=== PATIENT | male | born 1940 | race Caucasian/White ===

== ENCOUNTER 2016-05-24 21:19 | Emergency (ER) | payer MEDICARE, OTHER ==
[2016-05-24 22:01] VITALS: TEMP 97.9; O2SAT 98
[2016-05-24] MEDS ORDERED: LIDOCAINE VIS-MYLANTA 30 ML UD PO ONE (22:15)
[2016-05-24] MEDS ORDERED: ASPIRIN (CHEWABLE) 81 MG TAB PO ONE (22:15)
[2016-05-24] MEDS ORDERED: MORPHINE SULFATE INJ 10 MG/ML VIAL IV ONE (22:48)
[2016-05-24] MEDS ORDERED: ONDANSETRON INJ 4 MG/2 ML VIAL IV ONE (22:49)
--- NOTE | 2016-05-24 23:22 | RAD ---
EXAM DESCRIPTION: Chest,2 Views CLINICAL HISTORY: 75 years Male intermittent chest pain stabbing pain from the waist to the neck. COMPARISON: 10/24/2015. FINDINGS: The cardiomediastinal silhouette appears unremarkable. Changes from previous sternotomy. No consolidating infiltrates or pleural effusions. No pneumothorax. IMPRESSION: No acute abnormality is identified. Electronically signed by: Anirudh Chavarria MD 05/24/2016 11:20 PM CREATIVE ART THERAPIST
[2016-05-24] MEDS ORDERED: SODIUM CHLORIDE 0.9% 10 ML VIAL ONE (23:30)
[2016-05-25] MEDS ORDERED: ACETAMINOPHEN W/COD #3 TAB (ER Disp) PO PRN (01:03)
--- NOTE | 2016-05-25 01:06 | ED.PDOC ---
History of Present Illness - General Chief Complaint: General Stated Complaint: stabbing pain from waist to neck Time Seen by Provider: 05/24/16 22:14 Source: patient, RN notes reviewed, family Additional Information: Pt with vague complaints of intermittent sharp stabbing pains coarsing from "waist to upper back" with certain movements or respirations. Pt's states this started since this am. She tried using biofreeze, massage, and heating pad without any relief. Pt presented to ER for evaluation and management. Pt in no distress at rest, but he would have occasional brief periods of pain with certain movements. Pt with paraspinal muscle spasms noted on exam. No focal neuro deficit. Extensive cardiac history warranted a work-up which was negative for evidence of ACS. Pt was treated with a dose of Morphine which improved his symptoms. - History of Present Illness Timing/Duration: 24 hours Severity: moderate Improving Factors: immobilization Worsening Factors: movement Associated Symptoms: denies symptoms Allergies/Adverse Reactions: Allergies Metoprolol [From Lopressor] Allergy (Verified 10/24/15 18:40) Home Medications: Ambulatory Orders Allopurinol 300 mg PO HS 07/30/13 Atenolol 25 mg PO QAM 07/30/13 Coenzyme Q10 (Ubidecarenone) [Co Q-10] 100 mg PO DAILY 07/30/13 Docusate Sodium [Colace] 100 mg PO HS 07/30/13 Isosorbide Mononitrate [Isosorbide Mononitrate ER] 30 mg PO DAILY 07/30/13 Simvastatin 10 mg PO HS 07/30/13 Fish Oil 1000 mg 1,000 mg PO BID 12/05/13 Glimepiride 2 mg PO DAILY 12/05/13 Pantoprazole Sodium 40 mg PO DAILY 12/05/13 Gabapentin 100 mg PO TID 09/24/15 Metformin HCl 500 mg PO BID 09/24/15 Metoclopramide HCl [Reglan] 5 mg PO AC 09/24/15 Atenolol [Tenormin] 50 mg PO BEDTIME 10/24/15 Folic Wvbs-Jhguujoxfx-Vnrudcyc [Folbic 2.5-25-2 mg] 1 tab PO DAILY 10/24/15 Clopidogrel Bisulfate [Plavix] 75 mg PO DAILY #30 tab 10/25/15 Amlodipine Besylate 5 mg PO DAILY 05/24/16 Losartan Potassium 50 mg PO BEDTIME 05/24/16 Magnesium 400 mg PO BID 05/24/16 Acetamin W/Cod #3 Tab [Tylenol #3 Tab] 1 ea PO Q4-6H PRN #10 tab 05/25/16 Review of Systems - Review of Systems Constitutional: States: no symptoms reported EENTM: States: no symptoms reported Respiratory: States: no symptoms reported Cardiology: States: no symptoms reported Gastrointestinal/Abdominal: States: no symptoms reported Genitourinary: States: no symptoms reported Musculoskeletal: States: see HPI, back pain Skin: States: no symptoms reported Neurological: States: no symptoms reported Endocrine: States: no symptoms reported Hematologic/Lymphatic: States: no symptoms reported Past Medical History (General) - Patient Medical History Hx Seizures: No Hx Stroke: No Hx Dementia: No Hx Asthma: No Hx of COPD: No Hx Cardiac Disorders: Yes Hx Congestive Heart Failure: No Hx Pacemaker: No Hx Hypertension: Yes Hx Thyroid Disease: No Hx Diabetes: No Hx Gastroesophageal Reflux: Yes Hx Renal Disease: No Hx Cancer: No Hx of HIV: No Hx Hepatitis C: No Hx MRSA: No Surgical History: coronary bypass surgery - Vaccination History Hx Tetanus, Diphtheria Vaccination: Yes Hx Influenza Vaccination: Yes Hx Pneumococcal Vaccination: Yes Immunizations Up to Date: Yes - Social History Hx Tobacco Use: Yes Hx Alcohol Use: No Hx Substance Use: No Hx Substance Use Treatment: No Hx Depression: No Hx Physical Abuse: No Hx Emotional Abuse: No - Female History Patient is a Female of Child Bearing Age (10 -59 yrs old): No Patient : No Family Medical History - Family History Father Family History: Unknown Physical Exam - Physical Exam General Appearance: Alert, Comfortable - until he gets a sharp intermittent pain in his back, Well Developed, Well Groomed, Well Hydrated, Well Nourished Eye Exam: bilateral normal Ears, Nose, Throat: hearing grossly normal, normal ENT inspection, normal pharynx Neck: non-tender, full range of motion, supple, normal inspection Respiratory: no respiratory distress, no accessory muscle use Cardiovascular/Chest: regular rate, rhythm, no murmur Gastrointestinal/Abdominal: non tender, soft Back Exam: normal inspection, muscle spasm - paraspinal (L>R) Extremity: normal range of motion, non-tender 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, no motor/sensory deficits, alert, normal mood/affect, oriented x 3 Skin Exam: normal color Lymphatic: no adenopathy Progress - Results/Orders Results/Orders: 05/24/16 22:15 EKG STAT 05/25/16 01:03 Acetamin W/Cod #3 (ER Disp) #6 [Tylenol w/CODEINE #3 (ER Dispense) #6 tablets] 1 ea PO Q4H PRN Laboratory Results - last 24 hr 05/24/16 22:30 WBC 11.4 H RBC 4.43 L Hgb 12.5 L Hct 37.4 L MCV 84.4 MCH 28.2 MCHC 33.5 RDW 13.7 Plt Count 206 MPV 8.0 Absolute Neuts (auto) 6.60 Absolute Lymphs (auto) 2.60 Absolute Monos (auto) 0.90 H Absolute Eos (auto) 1.20 H Absolute Basos (auto) 0.10 Neutrophils % 57.6 Lymphocytes % 22.6 Monocytes % 8.1 Eosinophils % 10.5 H Basophils % 1.2 Sodium 139 Potassium 4.1 Chloride 105 Carbon Dioxide 23 Anion Gap 15.1 BUN 25 H Creatinine 1.10 BUN/Creatinine Ratio 22.7 H Random Glucose 127 H Serum Osmolality 283.5 Calcium 9.6 Total Bilirubin 0.3 AST 51 H ALT 43 Alkaline Phosphatase 81 Creatine Kinase 131 CK-MB (CK-2) 3.1 CK-MB (CK-2) % Not Reportable Troponin I < 0.02 Serum Total Protein 7.6 Albumin 4.3 Globulin 3.3 Albumin/Globulin Ratio 1.3 - EKG/XRAY/CT EKG: Sinus, no ST T wave changes XRAY: chest - no acute abnormalities noted Departure - Departure Clinical Impression: Spasm of back muscles Time of Disposition: 01:15 Disposition: Discharge to Home or Self Care Condition: Fair Departure Forms: ED Discharge - Pt. Copy, Patient Portal Self Enrollment Instructions: DI for Back Spasm Referrals: MIRA FIELDS [Primary Care Provider] - 1-5 Days Prescriptions: Acetamin W/Cod #3 Tab [Tylenol #3 Tab] 1 ea PO Q4-6H PRN #10 tab PRN Reason: Pain -- Moderate To Severe Home Medications: Ambulatory Orders Allopurinol 300 mg PO HS 07/30/13 Atenolol 25 mg PO QAM 07/30/13 Coenzyme Q10 (Ubidecarenone) [Co Q-10] 100 mg PO DAILY 07/30/13 Docusate Sodium [Colace] 100 mg PO HS 07/30/13 Isosorbide Mononitrate [Isosorbide Mononitrate ER] 30 mg PO DAILY 07/30/13 Simvastatin 10 mg PO HS 07/30/13 Fish Oil 1000 mg 1,000 mg PO BID 12/05/13 Glimepiride 2 mg PO DAILY 12/05/13 Pantoprazole Sodium 40 mg PO DAILY 12/05/13 Gabapentin 100 mg PO TID 09/24/15 Metformin HCl 500 mg PO BID 09/24/15 Metoclopramide HCl [Reglan] 5 mg PO AC 09/24/15 Atenolol [Tenormin] 50 mg PO BEDTIME 10/24/15 Folic Rmpq-Prtgprmswk-Zoduxbjo [Folbic 2.5-25-2 mg] 1 tab PO DAILY 10/24/15 Clopidogrel Bisulfate [Plavix] 75 mg PO DAILY #30 tab 10/25/15 Amlodipine Besylate 5 mg PO DAILY 05/24/16 Losartan Potassium 50 mg PO BEDTIME 05/24/16 Magnesium 400 mg PO BID 05/24/16 Acetamin W/Cod #3 Tab [Tylenol #3 Tab] 1 ea PO Q4-6H PRN #10 tab 05/25/16 Additional Instructions: Return to ER if condition worsens. Continue to try heating pad and massage as needed.
[2016-05-25 03:37] VITALS: BP 154/77
== END 2016-05-25 01:06 | disposition home or self-care (01) ==
LOC: ER 21:19
DX: M62.830 Muscle spasm of back (principal); I10 Essential (primary) hypertension; K21.9 Gastro-esophageal reflux disease without esophagitis; Z95.1 Presence of aortocoronary bypass graft; Z88.8 Allergy status to other drugs, medicaments and biological substances; Z79.899 Other long term (current) drug therapy; Z87.891 Personal history of nicotine dependence
CPT/HCPCS: 36415; 71020; 80053; 82550; 82553; 84484; 85025; 93005; J2270; J2405

== ENCOUNTER → 2017-09-15 | Outpatient (CLI) | payer MEDICARE, OTHER ==
--- NOTE | 2017-09-15 10:32 | MRI ---
EXAM DESCRIPTION: Lumbar Spine w/o Contrast : Magnetic Resonance Imaging. CLINICAL HISTORY: LUMBAR STENOSIS COMPARISON: MRI lumbar spine 10/21/2013 noncontrast. TECHNIQUE: Multiplanar, multiple standard sequences, non contrast MRI, lumbar spine. FINDINGS: L5-S1: Normal signal in the disc and disc space preserved. Posterior elements are unremarkable. AP canal diameter 12 mm. Bilateral mild to moderate foraminal narrowing. Stable since the prior study. L4-5: Disc desiccation with disc space preserved. Minimal bulge into the canal and into the bilateral foramina. Bilateral flavum ligament hypertrophy and mild facet arthrosis. AP canal diameter 11 mm. Mild bilateral foraminal narrowing. Stable since the prior study. L3-4: Anterior disc space loss with anterior disc bulge and anterior endplate spurs. Modic type I endplate reactive changes anteriorly and in the inferior L3 endplate. This has progressed since the prior study. Posterior broad-based disc bulge abutting the thecal sac. Mild flavum ligament hypertrophy and facet arthrosis. Left foramen patent and right foramen with mild to moderate narrowing. Mild canal narrowing. Stable since the prior study. L2-3: Anterior disc space loss disc bulging and endplate ridging. Disc desiccation. Posterior tiny disc bulge. Bilateral foramina patent. Posterior elements unremarkable. Canal is patent. Stable since the prior study. L1 to: Normal disc with no bulging. Disc space preserved. Canal and foramina patent. Posterior elements unremarkable. Well-circumscribed bright T1 and T2 signal in the inferior L1 endplate. Stable since the prior study. T12-L1: Normal signal in the disc and disc space preserved. No bulging. Posterior elements unremarkable. Canal and foramina are patent. Conus terminates at L1 mid level. Near-anatomic alignment. Paravertebral soft tissues negative. Bilateral renal cysts.. 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 Stable since the prior study. Otherwise normal marrow signal in the remaining vertebral bodies and the posterior elements. Vertebral bodies are not compressed at any level. IMPRESSION: 1. 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 Stable since the prior study. 2. L4-5 disc desiccation and bulging into the bilateral foramina and canal. Mild to moderate canal narrowing. Stable since the prior study. 3. Anterior spondylosis L3-4 disc bulging and anterior spurs and disc space narrowing. This is progressed since the prior study. Moderate narrowing of the right foramen, stable since the prior study. 4. Remaining findings on this study are stable since the prior study. Electronically signed by: Lobito Guerrero MD 09/15/2017 10:30 AM CDT
== END ==
LOC: MRI 09:00
DX: M48.062 Spinal stenosis, lumbar region with neurogenic claudication (principal); M47.896 Other spondylosis, lumbar region

== ENCOUNTER 2018-03-18 17:47 | Emergency (ER) | payer MEDICARE, OTHER ==
[2018-03-18 18:02] VITALS: TEMP 98.4
[2018-03-18] MEDS ORDERED: ASPIRIN (CHEWABLE) 81 MG TAB PO ONE (18:02)
--- NOTE | 2018-03-18 18:32 | RAD ---
EXAM DESCRIPTION: Chest,1 View CLINICAL HISTORY: chest pain COMPARISON: 05/24/2016 FINDINGS: Sternotomy wires are present. Cardiac surgical device is unchanged in position. Cardiac silhouette is within normal limits. There is no focal parenchymal or pleural disease. Visualized osseous structures are within normal limits. IMPRESSION: No evidence of acute cardiopulmonary disease. 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
--- NOTE | 2018-03-18 18:46 | ED.PDOC ---
History of Present Illness - General Chief Complaint: Chest Pain/[place] Stated Complaint: chest pain Time Seen by Provider: 03/18/18 17:48 Source: patient Exam Limitations: no limitations - History of Present Illness Initial Comments: Patient presents after having an episode of severe chest pain that lasted for several seconds. It made him go down to his knees. 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 He says he has daily chest pain and takes nitroglycerin for it. He says today was different because it hurt worse and almost knocked him down. No other complaints. Is asymptomatic upon presentation. Timing/Duration: 1/2 hour Severity: moderate Improving Factors: nothing Worsening Factors: nothing Associated Symptoms: denies symptoms Allergies/Adverse Reactions: Allergies Metoprolol [From Lopressor] Allergy (Verified 10/24/15 18:40) Home Medications: Ambulatory Orders Allopurinol 300 mg PO HS 07/30/13 Atenolol 25 mg PO BEDTIME 07/30/13 Coenzyme Q10 (Ubidecarenone) [Co Q-10] 100 mg PO DAILY 07/30/13 Docusate Sodium [Colace] 100 mg PO HS 07/30/13 Isosorbide Mononitrate [Isosorbide Mononitrate ER] 30 mg PO DAILY 07/30/13 Simvastatin 10 mg PO HS 07/30/13 Fish Oil 1000 mg 1,000 mg PO BID 12/05/13 Glimepiride 2 mg PO DAILY 12/05/13 Pantoprazole Sodium 40 mg PO DAILY 12/05/13 Gabapentin 100 mg PO .DAILY AND NOON 09/24/15 Metformin HCl 500 mg PO BID 09/24/15 Metoclopramide Tab [Reglan Tab] 5 mg PO AC 09/24/15 Atenolol [Tenormin] 50 mg PO DAILY 10/24/15 Folic Gamt-Hsixjpxqgw-Uoqvnoim [Folbic 2.5-25-2 mg] 1 tab PO DAILY 10/24/15 Clopidogrel Bisulfate [Plavix] 75 mg PO DAILY #30 tab 10/25/15 Amlodipine Besylate 5 mg PO DAILY 05/24/16 Losartan Potassium 50 mg PO BEDTIME 05/24/16 Magnesium 400 mg PO BID 05/24/16 Carbidopa-Levodopa [Carbidopa/Levodopa 25-100 mg] 1 tab PO TID 03/18/18 Gabapentin 200 mg PO BEDTIME 03/18/18 Review of Systems - Review of Systems Constitutional: States: no symptoms reported EENTM: States: no symptoms reported Respiratory: States: no symptoms reported Cardiology: States: see HPI Gastrointestinal/Abdominal: States: no symptoms reported Genitourinary: States: no symptoms reported Musculoskeletal: States: no symptoms reported Skin: States: no symptoms reported Neurological: States: no symptoms reported Endocrine: States: no symptoms reported Hematologic/Lymphatic: States: no symptoms reported Past Medical History (General) - Patient Medical History Hx Seizures: No Hx Stroke: No Hx Dementia: No Hx Asthma: No Hx of COPD: No Hx Cardiac Disorders: Yes Hx Congestive Heart Failure: No Hx Pacemaker: No Hx Hypertension: Yes Hx Thyroid Disease: No Hx Diabetes: No Hx Gastroesophageal Reflux: Yes Hx Renal Disease: No Hx Cancer: No Hx of HIV: No Hx Hepatitis C: No Hx MRSA: No Surgical History: coronary bypass surgery - Vaccination History Hx Tetanus, Diphtheria Vaccination: Yes Hx Influenza Vaccination: Yes Hx Pneumococcal Vaccination: Yes - Social History Hx Tobacco Use: Yes Hx Alcohol Use: No Hx Substance Use: No Hx Substance Use Treatment: No Hx Depression: No Hx Physical Abuse: No Hx Emotional Abuse: No - Female History Patient : No Family Medical History - Family History Father Family History: Unknown Physical Exam - Physical Exam General Appearance: Alert Eye Exam: bilateral normal Ears, Nose, Throat: normal ENT inspection Neck: non-tender, full range of motion, supple Respiratory: chest non-tender, lungs clear, normal breath sounds, no respiratory distress Cardiovascular/Chest: normal peripheral pulses, regular rate, rhythm, no edema Gastrointestinal/Abdominal: normal bowel sounds, non tender, soft Extremity: normal range of motion, non-tender, normal inspection, no pedal edema Neurologic: no motor/sensory deficits, alert, normal mood/affect, oriented x 3 Skin Exam: normal color Lymphatic: no adenopathy Progress - Progress Progress: 03/18/18 21:53 Laboratory Tests 03/18/18 03/18/18 03/18/18 17:55 17:55 17:55 WBC 11.9 H RBC 4.31 L Hgb 12.5 L Hct 36.5 L MCV 84.9 MCH 29.0 MCHC 34.3 RDW 13.9 Plt Count 225 MPV 8.0 Absolute Neuts (auto) 7.40 H Absolute Lymphs (auto) 2.60 Absolute Monos (auto) 0.70 Absolute Eos (auto) 1.00 H Absolute Basos (auto) 0.10 Neutrophils % 62.5 Lymphocytes % 21.9 Monocytes % 5.7 Eosinophils % 8.7 H Basophils % 1.2 PT 9.8 INR 0.98 PTT (SP) 27.0 Sodium 133 L Potassium 4.6 Chloride 100 L Carbon Dioxide 23 Anion Gap 14.6 BUN 22 H Creatinine 1.01 BUN/Creatinine Ratio 21.8 H Random Glucose 204 H Serum Osmolality 275.6 Calcium 9.4 Magnesium Total Bilirubin 0.4 AST 52 H ALT 38 Alkaline Phosphatase 85 Creatine Kinase 76 CK-MB (CK-2) 2.9 CK-MB (CK-2) % Not Reportable Troponin I < 0.02 B-Natriuretic Peptide 50.7 Serum Total Protein 7.5 Albumin 4.2 Globulin 3.3 Albumin/Globulin Ratio 1.3 03/18/18 03/18/18 17:55 21:08 WBC RBC Hgb Hct MCV MCH MCHC RDW Plt Count MPV Absolute Neuts (auto) Absolute Lymphs (auto) Absolute Monos (auto) Absolute Eos (auto) Absolute Basos (auto) Neutrophils % Lymphocytes % Monocytes % Eosinophils % Basophils % PT INR PTT (SP) Sodium Potassium Chloride Carbon Dioxide Anion Gap BUN Creatinine BUN/Creatinine Ratio Random Glucose Serum Osmolality Calcium Magnesium 1.6 L Total Bilirubin AST ALT Alkaline Phosphatase Creatine Kinase CK-MB (CK-2) CK-MB (CK-2) % Troponin I < 0.02 B-Natriuretic Peptide Serum Total Protein Albumin Globulin Albumin/Globulin Ratio Patient was symptom free in the E.D. Troponin x two negative. EKG x two showed 1st degree A-V block with NSR, no ST changes nor T wave inversions. No LBBB. Likely was chronic angina that he has but was just worse for this brief episode. E.R. warnings given. Care instructions given. Questions were elicited and answered. The patient voiced understanding and agreement with the plan. Departure - Departure Clinical Impression: Chronic stable angina Disposition: Discharge to Home or Self Care Condition: Good Departure Forms: ED Discharge - Pt. Copy, Patient Portal Self Enrollment Instructions: DI for Chest Pain Diet: low fat, low cholesterol Activity: increase activity as tolerated Referrals: MIRA FIELDS [Primary Care Provider] - 1-2 Weeks Home Medications: Ambulatory Orders Allopurinol 300 mg PO HS 07/30/13 Atenolol 25 mg PO BEDTIME 07/30/13 Coenzyme Q10 (Ubidecarenone) [Co Q-10] 100 mg PO DAILY 07/30/13 Docusate Sodium [Colace] 100 mg PO HS 07/30/13 Isosorbide Mononitrate [Isosorbide Mononitrate ER] 30 mg PO DAILY 07/30/13 Simvastatin 10 mg PO HS 07/30/13 Fish Oil 1000 mg 1,000 mg PO BID 12/05/13 Glimepiride 2 mg PO DAILY 12/05/13 Pantoprazole Sodium 40 mg PO DAILY 12/05/13 Gabapentin 100 mg PO .DAILY AND NOON 09/24/15 Metformin HCl 500 mg PO BID 09/24/15 Metoclopramide Tab [Reglan Tab] 5 mg PO AC 09/24/15 Atenolol [Tenormin] 50 mg PO DAILY 10/24/15 Folic Klxc-Nuthhvqups-Nsjdxtsq [Folbic 2.5-25-2 mg] 1 tab PO DAILY 10/24/15 Clopidogrel Bisulfate [Plavix] 75 mg PO DAILY #30 tab 10/25/15 Amlodipine Besylate 5 mg PO DAILY 05/24/16 Losartan Potassium 50 mg PO BEDTIME 05/24/16 Magnesium 400 mg PO BID 05/24/16 Carbidopa-Levodopa [Carbidopa/Levodopa 25-100 mg] 1 tab PO TID 03/18/18 Gabapentin 200 mg PO BEDTIME 03/18/18 Additional Instructions: See your regular doctor about control of your angina. Return to the E.R. if symptoms worsen.
[2018-03-18 19:04] VITALS: O2SAT 95
[2018-03-18 22:15] VITALS: BP 176/68
== END 2018-03-18 22:15 | disposition home or self-care (01) ==
LOC: ER 17:47
DX: I20.9 Angina pectoris, unspecified (principal); I25.2 Old myocardial infarction; I10 Essential (primary) hypertension; K21.9 Gastro-esophageal reflux disease without esophagitis; Z87.891 Personal history of nicotine dependence; Z98.61 Coronary angioplasty status; Z79.899 Other long term (current) drug therapy; Z88.8 Allergy status to other drugs, medicaments and biological substances; Z95.1 Presence of aortocoronary bypass graft

== ENCOUNTER 2018-06-17 21:52 | Observation (INO) | payer MEDICARE ==
--- NOTE | 2018-06-17 22:28 | ED.PDOC ---
History of Present Illness - General Chief Complaint: General Stated Complaint: feverish, weakness, not eating Time Seen by Provider: 06/17/18 22:21 Source: patient Exam Limitations: no limitations - History of Present Illness Initial Comments: BRINGS HER STATING THAT HE'S BEEN CONFUSED, HE HAS NOT BEEN EATING OR DRINKING. Severity: moderate Improving Factors: nothing Associated Symptoms: denies symptoms Allergies/Adverse Reactions: Allergies Metoprolol [From Lopressor] Allergy (Verified 10/24/15 18:40) Home Medications: Ambulatory Orders Allopurinol 300 mg PO HS 07/30/13 Docusate Sodium [Colace] 100 mg PO HS 07/30/13 Isosorbide Mononitrate [Isosorbide Mononitrate ER] 30 mg PO DAILY 07/30/13 Simvastatin 10 mg PO HS 07/30/13 Fish Oil 1000 mg 1,000 mg PO BID 12/05/13 Glimepiride 2 mg PO DAILY 12/05/13 Pantoprazole Sodium 40 mg PO DAILY 12/05/13 Gabapentin 100 mg PO .DAILY AND NOON 09/24/15 Metformin HCl 500 mg PO BID 09/24/15 Folic Hdfo-Teldrhbvkt-Vhmykxnr [Folbic 2.5-25-2 mg] 1 tab PO DAILY 10/24/15 Clopidogrel Bisulfate [Plavix] 75 mg PO DAILY #30 tab 10/25/15 Losartan Potassium 50 mg PO BEDTIME 05/24/16 Magnesium 400 mg PO BID 05/24/16 Carbidopa-Levodopa [Carbidopa/Levodopa 25-100 mg] 1 tab PO TID 03/18/18 Gabapentin 200 mg PO BEDTIME 03/18/18 Clopidogrel Bisulfate [Plavix] 75 mg PO 06/17/18 Metoclopramide HCl 5 mg PO 06/17/18 Review of Systems - Review of Systems Constitutional: States: chills, fever EENTM: States: no symptoms reported Respiratory: Denies: cough, short of breath Cardiology: Denies: chest pain, palpitations, syncope Gastrointestinal/Abdominal: Denies: abdominal pain, nausea, vomiting Genitourinary: States: no symptoms reported Musculoskeletal: States: no symptoms reported Skin: States: no symptoms reported Neurological: States: other - CONFUSION Endocrine: States: no symptoms reported Hematologic/Lymphatic: States: no symptoms reported Past Medical History (General) - Patient Medical History Hx Seizures: No Hx Stroke: No Hx Dementia: No Hx Asthma: No Hx of COPD: No Hx Cardiac Disorders: Yes Hx Congestive Heart Failure: No Hx Pacemaker: No Hx Hypertension: Yes Hx Thyroid Disease: No Hx Diabetes: Yes Hx Gastroesophageal Reflux: Yes Hx Renal Disease: No Hx Cancer: No Hx of HIV: No Hx Hepatitis C: No Hx MRSA: No Surgical History: other - Vaccination History Hx Tetanus, Diphtheria Vaccination: Yes Hx Influenza Vaccination: Yes Hx Pneumococcal Vaccination: Yes - Social History Hx Tobacco Use: Yes Hx Alcohol Use: No Hx Substance Use: No Hx Substance Use Treatment: No Hx Depression: No Hx Physical Abuse: No Hx Emotional Abuse: No - Female History Patient : No Family Medical History - Family History Father Family History: Unknown Physical Exam - Physical Exam General Appearance: Alert, No apparent distress Eye Exam: bilateral normal Ears, Nose, Throat: other - MM SLIGHTLY DRY Neck: non-tender, full range of motion, supple, normal inspection Respiratory: lungs clear, normal breath sounds, no respiratory distress Cardiovascular/Chest: regular rate, rhythm, no murmur Gastrointestinal/Abdominal: normal bowel sounds, non tender, soft, no organomegaly Back Exam: normal inspection, no CVA tenderness Extremity: normal range of motion, non-tender Neurologic: no motor/sensory deficits, alert, normal mood/affect, other - DISORIENTED TO TIME BUT STATES THAT HAPPENS FROM TIME TO TIME Skin Exam: normal color, warm/dry Lymphatic: no adenopathy Progress - Progress Progress: 06/18/18 00:07 VSS, SLIGHTLY CONFUSED, D/W MAHIN WILL ADMIT - EKG/XRAY/CT XRAY: chest - SLIGHT PROMINENCE OF R PERIHILAR VASCULATURE Departure - Departure Clinical Impression: Dehydration, Altered sensorium, Diabetes 1.5, managed as type 2 Hypertension Qualifiers: Hypertension type: essential hypertension Qualified Code(s): I10 - Essential (primary) hypertension Time of Disposition: 00:14 Disposition: Admit Patient Condition: Fair Departure Forms: ED Discharge - Pt. Copy, Patient Portal Self Enrollment Referrals: MIRA FIELDS [Primary Care Provider] - 1-2 Weeks Home Medications: Ambulatory Orders Allopurinol 300 mg PO HS 07/30/13 Docusate Sodium [Colace] 100 mg PO HS 07/30/13 Isosorbide Mononitrate [Isosorbide Mononitrate ER] 30 mg PO DAILY 07/30/13 Simvastatin 10 mg PO HS 07/30/13 Fish Oil 1000 mg 1,000 mg PO BID 12/05/13 Glimepiride 2 mg PO DAILY 12/05/13 Pantoprazole Sodium 40 mg PO DAILY 12/05/13 Gabapentin 100 mg PO .DAILY AND NOON 09/24/15 Metformin HCl 500 mg PO BID 09/24/15 Folic Dllh-Sqyejysrik-Jtnlwcct [Folbic 2.5-25-2 mg] 1 tab PO DAILY 10/24/15 Clopidogrel Bisulfate [Plavix] 75 mg PO DAILY #30 tab 10/25/15 Losartan Potassium 50 mg PO BEDTIME 05/24/16 Magnesium 400 mg PO BID 05/24/16 Carbidopa-Levodopa [Carbidopa/Levodopa 25-100 mg] 1 tab PO TID 03/18/18 Gabapentin 200 mg PO BEDTIME 03/18/18 Clopidogrel Bisulfate [Plavix] 75 mg PO 06/17/18 Metoclopramide HCl 5 mg PO 06/17/18 Decision To Admit - Decistion To Admit Decision to Admit Reason: Admit from ER Decision to Admit Date: 06/17/18 Decision to Admit Time: 23:37
[2018-06-17] MEDS ORDERED: SODIUM CHLORIDE 0.9% 500ML 500 ML IVS ONE (23:04)
[2018-06-17] MEDS ORDERED: SODIUM CHLORIDE 0.9% 1000ML 1,000 ML IVS ONE (23:26)
[2018-06-18] MEDS ORDERED: GLUCAGON INJ 1 MG VIAL SUBCU PRN (01:12)
[2018-06-18] MEDS ORDERED: ACETAMINOPHEN 325 MG TAB PO PRN (01:12)
[2018-06-18] MEDS ORDERED: DEXTROSE 50% 25 GM/50 ML SYG IV PRN (01:12)
[2018-06-18] MEDS ORDERED: SODIUM CHLORIDE 0.9% 1000ML 1,000 ML IVS PRN (01:12)
[2018-06-18] MEDS ORDERED: SODIUM CHLORIDE 0.9% (FLUSH) 10 ML SYG IV PRN (01:12)
[2018-06-18] MEDS ORDERED: IV SET AND CAP CHANGE INJ INJ SCH (01:30)
[2018-06-18] MEDS ORDERED: GABAPENTIN 100 MG CAP PO SCH ×2 (02:00→21:00)
[2018-06-18] MEDS ORDERED: MAGNESIUM OXIDE 400 MG TAB ONE (06:59)
[2018-06-18] MEDS: INSULIN LISPRO 100 UNITS/ML PEN SUBCU SCH ×2 (07:25→11:36)
[2018-06-18] MEDS ORDERED: GLIMEPIRIDE 0.5 MG PO SCH (09:00)
[2018-06-18] MEDS ORDERED: NON-FORMULARY MEDICATION 1 EA MIS (Magnesium [Magnesium] 400 MG) PO SCH (09:00)
[2018-06-18] MEDS ORDERED: ISOSORBIDE MONONITRATE (IMDUR) 30 MG TAB PO SCH (09:00)
[2018-06-18] MEDS ORDERED: CARBIDOPA/LEVODOPA 25/100 1 TAB PO SCH (09:00)
[2018-06-18] MEDS ORDERED: METOCLOPRAMIDE HCL 5 MG TAB PO SCH (09:00)
[2018-06-18] MEDS ORDERED: metFORMIN HCL 500 MG TAB PO SCH (09:00)
[2018-06-18] MEDS ORDERED: PANTOPRAZOLE SODIUM TAB 40 MG PO SCH (09:00)
[2018-06-18] MEDS ORDERED: ENOXAPARIN SODIUM 40 MG/0.4 ML SYG SUBCU SCH (09:00)
[2018-06-18 10:01] VITALS: BP 150/71; TEMP 97.4; O2SAT 95
[2018-06-18] MEDS ORDERED: MAGNESIUM SULFATE PREMIX 2GM 2 GM in PREMIX BAG 1 BAG IVPB ONE (10:39)
[2018-06-18] MEDS ORDERED: MAGNESIUM SULFATE PREMIX 2GM 50 ML IVPB ONE (10:44)
--- NOTE | 2018-06-18 11:25 | SSS ---
DATE OF ADMISSION: 06/17/18 DATE OF DISCHARGE: 06/18/18 SUPERVISING PHYSICIAN: Johnathan Bocanegra MD DISCHARGE DIAGNOSIS: 1. Confusion with mild anorexia and decreased intake of p.o. fluids. 2. Dehydration with mild renal insufficiency, normalized. 3. Electrolyte imbalance, mostly hyponatremia of 129 and hypomagnesemia of 1.7. 4. History of hypertension. 5. History of diabetes mellitus on oral therapy. 6. Coronary artery disease. 7. Gout. 8. Gastroesophageal reflux disease. HISTORY OF PRESENT ILLNESS: This is a 77-year-old male patient who presented to the Emergency Room on the date of admission for confusion. He said that on Thursday, he and his went to [place] for one of her doctor's appointments and felt good at that time. They went out to eat at an all you can eat salad bar and when he came home on Thursday evening, he was nauseated. He had some mild diffuse abdominal pain and actually had vomiting x1. He also had mild diarrhea. His said he did not even know her, he had poor fluid intake and was not eating well over the next 24 hours. In the Emergency Room, his initial sodium was 129 with potassium 4.3, chloride 96, carbon dioxide 20, BUN 25, creatinine 1.18. Glucose 198. Initial lactic acid was 2.3. WBCs 14, hemoglobin 12.6, hematocrit 37.1. He did have a left shift on his differential. Urinalysis was basically unremarkable. Influenza A and B per PCR were both negative. His vital signs showed a low grade temperature of 99.1 with pulse 81, blood pressure 132/78, respiratory rate 20, O2 saturation 96% on room air. HOSPITAL COURSE: He was placed in Observation overnight. He was given fluids. His confusion resolved. Lab this morning showed sodium 133, potassium 3.6, chloride 101, carbon dioxide 23, BUN 20, creatinine 0.89, glucose 125, lactic acid 1.6, magnesium 1.7 but he received supplementation this morning. His WBCs normalized to 10,300 with hemoglobin 12.1, hematocrit 35.3. There was no shift on his differential. The patient will be discharged home in stable condition. PAST MEDICAL HISTORY: 1. Diabetes mellitus, type 2, on oral therapy. 2. Coronary artery disease. 3. Myocardial infarction in 2000. 4. Hypertension. 5. Gout. 6. Gastroesophageal reflux disease. 7. History of small bowel obstruction secondary to hernia. 8. Transient ischemic attacks x2. PAST SURGICAL HISTORY: 1. Hernia repair x4. 2. Coronary artery bypass graft in 2007. 3. Coronary artery stents in 2000. 4. Appendectomy. CURRENT MEDICATIONS: 1. Fish oil. 2. Folic acid. 3. Cyanocobalamin. 4. Pyridoxine. 5. Allopurinol. 6. Carbidopa/levodopa. 7. Plavix. 8. Docusate sodium. 9. Gabapentin. 10. Glimepiride. 11. Isosorbide mononitrate. 12. Losartan. 13. Magnesium. 14. Metformin. 15. Reglan. 16. Pantoprazole. 17. Simvastatin. ALLERGIES: METOPROLOL, HIGH DOSE RANEXA. FAMILY HISTORY: Positive for diabetes and cancer. SOCIAL HISTORY: He lives in [place]. He is . He quit smoking when he was 19 years old. He denies any ETOH or illicit drug use. He is a retired welder/installer. REVIEW OF SYSTEMS: Negative except as per history of present illness. PHYSICAL EXAMINATION: VITAL SIGNS: Temperature 97.4. Heart rate 66. Blood pressure 150/71. Respiratory rate 18. O2 saturation 95% on room air. GENERAL: This is a 77-year-old male patient sitting up in his hospital bed. He is in no acute distress. HEENT: Normocephalic, atraumatic. Pupils are equal and reactive. Oropharynx is clear. NECK: Supple without mass. No discernible jugular venous distention. RESPIRATORY: Clear to auscultation bilaterally. CHEST: There is equal rise and fall of the chest with inspiration and expiration. CARDIOVASCULAR: Regular rate and rhythm. GASTROINTESTINAL: Abdomen is soft, nondistended, nontender. Bowel sounds are positive. EXTREMITIES: No cyanosis, clubbing or edema. NEUROLOGIC: Awake, alert and oriented times three. Cranial nerves II-XII are grossly intact. His states his confusion resolved last night and his neurological status is baseline now. LABORATORY: Labs and films are as per history of present illness. DISCHARGE PLAN: The patient will be discharged home in stable condition. He is to resume his previous diet and increase his activity as tolerated. He is to followup with his primary care physician, Dr. Mukesh Zavala. He has an appointment on 06/29/18. He is to resume his previous home medications. He is to return to the hospital for any problems or complications. DISCHARGES MEDICATION: 1. Simvastatin. 2. Colace. 3. Allopurinol. 4. Isosorbide mononitrate. 5. Pantoprazole. 6. Fish oil. 7. Gabapentin. 8. Metformin. 9. Folic acid. 10. Cyanocobalamin. 11. Pyridoxine. 12. Losartan. 13. Magnesium. 14. Gabapentin. 15. Carbidopa/levodopa. 16. Reglan. 17. Glimepiride. 18. Plavix. #[id number]
[2018-06-18] MEDS ORDERED: CLOPIDOGREL 75 MG TAB PO SCH (17:00)
[2018-06-18] MEDS ORDERED: MAGNESIUM OXIDE 400 MG TAB PO SCH (21:00)
[2018-06-18] MEDS ORDERED: DOCUSATE SODIUM 100 MG CAP PO SCH (21:00)
[2018-06-18] MEDS ORDERED: SIMVASTATIN 20 MG TAB PO SCH (21:00)
[2018-06-18] MEDS ORDERED: LOSARTAN POTASSIUM 25 MG TAB PO SCH (21:00)
[2018-06-18] MEDS ORDERED: ALLOPURINOL 300 MG TAB PO SCH (21:00)
== END 2018-06-18 12:10 | disposition home or self-care (01) ==
LOC: ER 21:52 → MS 06-18 00:25
PROVIDERS: ADMIT Nurse Practitioner Family; ATTEND Nurse Practitioner Acute Care
DX: E86.0 Dehydration (principal); R41.0 Disorientation, unspecified; R63.0 Anorexia; N28.9 Disorder of kidney and ureter, unspecified; E83.42 Hypomagnesemia; E87.1 Hypo-osmolality and hyponatremia; E87.8 Other disorders of electrolyte and fluid balance, not elsewhere classified; I10 Essential (primary) hypertension; E11.9 Type 2 diabetes mellitus without complications; I25.10 Atherosclerotic heart disease of native coronary artery without angina pectoris; M10.9 Gout, unspecified; K21.9 Gastro-esophageal reflux disease without esophagitis; I25.2 Old myocardial infarction; Z68.27 Body mass index [BMI] 27.0-27.9, adult; Z79.84 Long term (current) use of oral hypoglycemic drugs; Z79.02 Long term (current) use of antithrombotics/antiplatelets; Z79.899 Other long term (current) drug therapy; Z88.8 Allergy status to other drugs, medicaments and biological substances; Z86.73 Personal history of transient ischemic attack (TIA), and cerebral infarction without residual deficits; Z95.1 Presence of aortocoronary bypass graft; Z95.5 Presence of coronary angioplasty implant and graft; Z87.891 Personal history of nicotine dependence; Z90.49 Acquired absence of other specified parts of digestive tract
CPT/HCPCS: 96361; 96365; 96372; J7040; J7030 ×2; J1650; J3475; 80048; 80053; 82948 ×2; 36415 ×3; 81001; 85025 ×2; 83735; 36416 ×2; 83605 ×2; 71045; 94760 ×2; 99285; G0378; 87502

== ENCOUNTER 2018-11-14 11:00 | Emergency (ER) | payer MEDICARE, OTHER ==
[2018-11-14 13:44] VITALS: BP 152/69; O2SAT 96
[2018-11-14 15:56] VITALS: TEMP 97.8
== END 2018-11-14 14:00 | disposition short-term general hospital (02) ==
LOC: ER 11:00
DX: I20.0 Unstable angina (principal); I44.0 Atrioventricular block, first degree; I25.2 Old myocardial infarction; E78.5 Hyperlipidemia, unspecified; I10 Essential (primary) hypertension; E11.9 Type 2 diabetes mellitus without complications; K21.9 Gastro-esophageal reflux disease without esophagitis; Z95.5 Presence of coronary angioplasty implant and graft; Z79.899 Other long term (current) drug therapy; Z79.84 Long term (current) use of oral hypoglycemic drugs; Z88.8 Allergy status to other drugs, medicaments and biological substances
CPT/HCPCS: 36415; 71045; 80048; 80076; 82550; 82553; 83880; 84484; 85025; 85379; 85610; 85730; 93005; J1650; J3475